=== PATIENT | male | born 1960 | race Hispanic/Latino ===

== ENCOUNTER 2018-03-01 11:22 | Day surgery (SDC) | payer OTHER ==
[2018-02-22 14:13] VITALS: BMI 25.1
[2018-03-01] MEDS ORDERED: Propofol 10 mg/ml Inj (20 ML) ONE (12:26)
[2018-03-01] MEDS ORDERED: Oxycodone/Acetaminophen 5/325 mg Tab PO PRN (12:37)
--- NOTE | 2018-03-01 12:39 | CP.SDSHP ---
Same Day Surgery H & P - History Proposed Procedure: Left lung mass biopsy Pre-Op Diagnosis: Left lung mass - Allergies Allergies: Allergies No Known Allergies Allergy (Verified 03/01/18 12:37) - Physical Exam Mental Status: Alert & Oriented x3 - Impression Impression: Pt with large PET positive left lower lung mass. Plan CT guided biopsy. Informed consent obtained and risk of pneumothorx/chest tube discussed. Pt. Evaluated Today:Candidate for Anesthesia & Procedure: Yes (ASA 3 Malampati 3) - Date & Time Date: 03/01/18 Time: 12:10 Short Stay Discharge - Short Stay Discharge Admitting Diagnosis/Reason for Visit: dx: left lower lobe mass Disposition: HOME/ ROUTINE
--- NOTE | 2018-03-01 12:41 | PCM.SURG1 ---
Surgeon's Initial Post Op Note - Surgeon's Notes Surgeon: Hector Cullen MD Nut Grader: NONE Type of Anesthesia: IV Sedation Pre-Operative Diagnosis: Left lung mass Operative Findings: 5 cm left lower lobe mass. Post-Operative Diagnosis: Left lung mass Operation Performed: CT guided biopsy. Two 20-g core specimen obtained. No PTX on post bx CT scan. Specimen/Specimens Removed: 20 g core x 2 Estimated Blood Loss: EBL {In ML}: 0 Blood Products Given: N/A Drains Used: No Drains Post-Op Condition: Good Date of Surgery/Procedure: 03/01/18 Time of Surgery/Procedure: 12:35
--- NOTE | 2018-03-01 13:41 | CT ---
PROCEDURE: Date of procedure: 03/01/2018 Procedure: 1. CT-guided lung mass biopsy, CPT 1936[address] 2. CT Guidance for biopsy, [address] Radiation: 660.28 MGy-cm Medications: The patient was sedated by anesthesiologist along with physiologic monitoring. HISTORY: Left lung mass. TECHNIQUE: Following informed consent and procedure time out, the patient was placed prone on the CT table and noncontrast CT scan was performed. Noncontrast CT scan confirmed the presence of a large left lung mass. A skin localizer was placed on the patient's LEFT back and a repeat CT scan was performed. The skin was marked, prepped, and draped in the usual sterile fashion. After the skin was anesthetized with lidocaine and the patient sedated by the anesthesiologist, a 20 gauge core needle was advanced percutaneously under direct CT guidance into the mass. Upon confirmation of needle position, Two 20-gauge core specimens were obtained and sent for routine pathology. The needle was removed and a xeroform dressing was applied. A post biopsy CT scan showed no pneumothorax. IMPRESSION: CT guided core biopsy left lung mass.
--- NOTE | 2018-03-01 14:23 | RAD ---
Date of service: 03/01/2018 PROCEDURE: CHEST RADIOGRAPH, 1 VIEW HISTORY: Status post left lung mass biopsy COMPARISON: None available. FINDINGS: LUNGS: No right-sided airspace disease. PLEURA: Opacity at the retrocardiac left base may reflect postprocedure atelectasis or possible small hematoma. CARDIOVASCULAR: Normal. OSSEOUS STRUCTURES: No significant abnormalities. VISUALIZED UPPER ABDOMEN: Normal. OTHER FINDINGS: None. IMPRESSION: No pneumothorax bilaterally. Post procedure change left lung base reflecting opacity from atelectasis or possible small hematoma.
[2018-03-01 15:38] VITALS: RESP 18
[2018-03-01 15:41] VITALS: O2SAT 98
[2018-03-01 15:42] VITALS: BP 136/89; PULSE 60
== END 2018-03-01 15:00 | disposition home or self-care (01) ==
LOC: C.SPRAD 11:22
PROVIDERS: ATTEND Internal Medicine Critical Care Medicine
DX: R91.8 Other nonspecific abnormal finding of lung field (principal)
CPT/HCPCS: 32405; 71045; 77012; 88305; 88312; J2704